=== PATIENT | female | born 1985 | race Caucasian/White ===

== ENCOUNTER 2017-10-09 19:41 | Emergency (ER) | payer SELFPAY ==
[~2017-10-09] VITALS: Ht 172.7 cm; Wt 65.9 kg
[2017-10-09 19:55] VITALS: Ht 172.7 cm; Wt 65.9 kg
[2017-10-09] MEDS ORDERED: KEFLEX500 MG PO (21:47)
[2017-10-09] MEDS ORDERED: VOLTAREN75 MG PO (21:47)
[2017-10-09 22:10] VITALS: BP 122/74
== END 2017-10-09 22:11 | disposition home or self-care (01) ==
LOC: D.ER 19:41
DX: L03.012 Cellulitis of left finger (principal); F17.200 Nicotine dependence, unspecified, uncomplicated